=== PATIENT | female | born 1980 | race Caucasian/White ===

== ENCOUNTER 2020-04-20 23:41 | Emergency (ER) | payer BC ==
[~2020-04-20] VITALS: Ht 157.5 cm; Wt 90.7 kg
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
[2020-04-21] MEDS ORDERED: IBUPROFEN 400 MG TAB PO ONE (02:00)
[2020-04-21] MEDS ORDERED: IBUPROFEN 400 MG TAB ONE (02:03)
--- NOTE | 2020-04-21 02:05 | Diagnostic Imaging Report ---
HAND 3 VIEW LT - HOPD - 3 views HISTORY: Pain. COMPARISON: None available. FINDINGS: Bones: No acute displaced fracture. Osseous alignment is within normal limits. Joints: The joint spaces are well-maintained. Soft tissues: The soft tissues appear unremarkable. IMPRESSION: No acute radiographic abnormality. Signed by: Jamal Mendiola MD on 04/21/2020 2:02 AM
[2020-04-21] MEDS ORDERED: IBUPROFEN400 MG PO (02:21)
[2020-04-21 02:36] VITALS: BP 121/79
== END 2020-04-21 02:36 | disposition home or self-care (01) ==
LOC: FSED 04-21
DX: S60.222A Contusion of left hand, initial encounter (principal); V43.52XA Car driver injured in collision with other type car in traffic accident, initial encounter; Y92.488 Other paved roadways as the place of occurrence of the external cause; I10 Essential (primary) hypertension
CPT/HCPCS: 99283

== ENCOUNTER 2020-08-23 22:24 | Observation (INO) | payer BC ==
[~2020-08-23] VITALS: Ht 157.5 cm; Wt 97.5 kg
[~2020-08-23 22:24] MED LIST: IBUPROFEN400 MG PO
[2020-08-23] MEDS ORDERED: SODIUM CHLORIDE FLUSH 10 ML SYR INJ PRN (23:15)
[2020-08-23] MEDS ORDERED: DIGOXIN250 MCG PO (23:53)
[2020-08-23] MEDS ORDERED: PROPRANOLOL HCL40 MG PO (23:54)
[2020-08-23] MEDS ORDERED: VRAYLAR1.5 MG PO (23:55)
[2020-08-23] MEDS ORDERED: TIROSINT112 MCG PO (23:55)
[2020-08-23] MEDS ORDERED: XANAX0.25 MG (23:56)
[2020-08-24] VITALS (8 sets, daily range): BP systolic 96–126; BP diastolic 58–79
[2020-08-24] MEDS ORDERED: ASPIRIN 81 MG ENTERIC COATED PO SCH (09:00)
[2020-08-24 09:23] LABS: CHOL/HDL RATIO 4.9 (3.0-3.6)
[2020-08-24 09:34] LABS: CREATINE KINASE 125 IU/L (29-168)
[2020-08-24] MEDS ORDERED: ALPRAZOLAM 0.25 MG TAB PO PRN (10:45)
[2020-08-24 11:00] LABS: CREATINE KINASE MB < 1.00 ng/mL (0-4.3)
[2020-08-24] MEDS ORDERED: PANTOPRAZOLE SOD 40 MG TABEC PO ONE (11:00)
[2020-08-24 14:52] LABS: CREATINE KINASE 119 IU/L (29-168)
[2020-08-24] MEDS ORDERED: ENOXAPARIN SOD INJ 40 MG/0.4 ML SYR SC SCH (17:00)
[2020-08-24] MEDS ORDERED: PROPRANOLOL HCL 10 MG TAB PO SCH (17:00)
[2020-08-24] MEDS ORDERED: PROPRANOLOL HCL 40 MG TAB PO SCH ×2 (17:00)
[2020-08-24] MEDS ORDERED: CARIPRAZINE HCL 1.5 MG PO SCH (21:00)
[2020-08-25] MEDS ORDERED: LEVOTHYROXINE SODIUM 112 MCG TAB PO SCH (06:00)
[2020-08-25] MEDS ORDERED: LEVOTHYROXINE SODIUM 125 MCG TAB PO SCH (06:00)
[2020-08-25] MEDS ORDERED: LEVOTHYROXINE SODIUM 112 MCG PO SCH (07:30)
[2020-08-25] MEDS ORDERED: PANTOPRAZOLE SOD 40 MG TABEC PO SCH (07:30)
[2020-08-25] MEDS ORDERED: DIGOXIN 0.25 MG TAB PO SCH (09:00)
== END 2020-08-24 17:10 | disposition home or self-care (01) ==
LOC: FSED 22:33 → ERHOLD 23:07 → MED/SURG2 08-24 00:41
PROVIDERS: ADMIT Internal Medicine; ATTEND Internal Medicine
DX: R07.89 Other chest pain (principal); F41.9 Anxiety disorder, unspecified; E03.9 Hypothyroidism, unspecified; K21.9 Gastro-esophageal reflux disease without esophagitis; E66.9 Obesity, unspecified; Z68.39 Body mass index [BMI] 39.0-39.9, adult; Z11.59 Encounter for screening for other viral diseases; R00.2 Palpitations; M94.0 Chondrocostal junction syndrome [Tietze]
CPT/HCPCS: 36415; 71046; 80053; 80061; 80162; 81003; 81025; 82550; 82553 ×2; 84443; 84484 ×2; 93005; 99284; G0378 ×2; S0164; U0002; J1650

== ENCOUNTER 2021-10-04 08:04 | Emergency (ER) | payer BC, OTHER ==
[~2021-10-04] VITALS: Ht 157.5 cm; Wt 93.0 kg
[~2021-10-04 08:04] MED LIST changes: +DIGOXIN250 MCG PO; +PROPRANOLOL HCL40 MG PO; +TIROSINT112 MCG PO; +VRAYLAR1.5 MG PO; +XANAX0.25 MG
[2021-10-04] MEDS ORDERED: ZITHROMAX250 MG PO (09:48)
[2021-10-04] MEDS ORDERED: DEXAMETHASONE6 MG PO (09:50)
[2021-10-04] MEDS ORDERED: DIFLUCAN150 MG PO (09:52)
[2021-10-04 09:53] VITALS: BP 123/74
[2021-10-04] MEDS ORDERED: ONDANSETRON ODT4 MG PO (09:53)
[2021-10-04] MEDS ORDERED: VENTOLIN HFA18 GM INH (09:55)
== END 2021-10-04 10:24 | disposition home or self-care (01) ==
LOC: FSED 08:35
DX: U07.1 COVID-19 (principal); R07.89 Other chest pain; R05.9 Cough, unspecified; I10 Essential (primary) hypertension; E03.9 Hypothyroidism, unspecified; F41.9 Anxiety disorder, unspecified; F17.210 Nicotine dependence, cigarettes, uncomplicated
CPT/HCPCS: 71046; 80053; 81003; 82553; 84484; 85025; 93005; 99283